=== PATIENT | female | born 2000 | race Caucasian/White ===

== ENCOUNTER 2024-09-21 00:22 | Emergency (ER) | payer OTHER, SELFPAY ==
[2024-09-21 00:25] VITALS: BP 121/62; PULSE 107; RESP 20; TEMP 36.3; O2SAT 97; BMI 41.6
--- NOTE | 2024-09-21 00:58 | ED.SKABFB ---
HPI - Skin/Abscess/Foreign Bdy General Chief complaint: Skin/Abscess/Foreign Body Stated complaint: cyst? Time Seen by Provider: 09/21/24 00:51 Source: patient Mode of arrival: ambulatory Limitations: no limitations History of Present Illness ED Provider: Rachel Verdin NP HPI narrative: Patient is a 23-year-old female who presents emergency department for evaluation of a painful lump to the right upper medial thigh just beneath the groin area. First noticed a few days ago. Increasing in size and pain. Denies any active drainage. Denies any trauma or history. Denies any history of abscesses requiring incision and drainage in the past. No fevers or chills. No urogenital symptoms. Related Data Previous Rx's ?Medication ?Instructions ?Recorded cephalexin 500 mg capsule 500 mg PO QID #27 caps 09/21/24 Allergies Allergy/AdvReac Type Severity Reaction Status Date / Time No Known Allergies Allergy Verified 09/21/24 00:26 Review of Systems Review of Systems: Yes all other systems are reviewed and are negative PMFSH Past Medical History Attestation statement: The following information was validated with the patient. Source: old records reviewed Physical Exam Vital Signs: Vital Signs: Last Vital Signs Temp 97.3 F 09/21/24 00:25 Pulse 107 H 09/21/24 00:25 Resp 20 09/21/24 00:25 BP 121/62 09/21/24 00:25 Pulse Ox 97 09/21/24 00:25 O2 Del Method Room Air 09/21/24 00:25 BMI result Body Mass Index 41.6 Appearance: Alert.?Oriented to person, place and time. No acute distress.?Normal affect.?? CVS: Heart sounds normal. Normal heart rate and rhythm.? Pulses normal.?? Respiratory: No respiratory distress.? Lung sounds clear to auscultation bilaterally??? Skin: Skin warm and dry.? Normal skin color.? Extremities: No lower extremity edema.? No calf ttp. Right proximal medial thigh just inferior to the groin with 0.5 cm fluctuant abscess and surrounding erythema. Neuro: Moves all extremities spontaneously. Sensation intact bilaterally. Ambulates with normal steady gait. Medical Decision Making Medical Decision Making [facility] Narrative: Patient is a 23-year-old female currently 30 weeks with LANDEN 11/29/2024 presenting for evaluation of an abscess to the right medial proximal thigh as per HPI and PE portion of this note. History physical exam consistent with abscess. No systemic toxicity, and patient is well-appearing. There is surrounding cellulitis. Not consistent with necrotizing fasciitis, myositis, DVT, osteomyelitis. She denies any obstetric related concerns, no cramping, Con Beavers/contractions, abnormal vaginal discharge or bleeding, genitourinary symptoms. No fevers or chills. Afebrile. patient is now status post incision and drainage of abscess and tolerated the procedure well. No complications. No labs or imaging indicated at this time. Will discharge home with course of oral antibiotics and symptomatic treatment instructions. Discussed reasons to return to the emergency department, and follow-up with primary care provider. Patient agreeable with plan of care. Differential Diagnosis Differential Diagnoses: The differential diagnosis associated with the presentation includes (Abscess, cellulitis, see additional narrative above) Admission/Observation Consideration of admission/observation: Escalation of care including admission/observation considered Independent Historian Clinical information obtained from an independent historian. History obtained from or confirmed by: Spouse External Record Review External record reviewed: Outpatient record Prescription Management I considered prescription management with: Antibiotic Procedures Abscess I/D Site: lower extremity Side (if applicable): right Local Anesthetic: lidocaine 1% Amount of anesthesia used (mL): 2 Technique: incised with blade Amount of fluid expressed (mL): 3 Irrigation: Yes Packing used?: none Discharge Plan Discharge Clinical Impression: Abscess of skin or subcutaneous tissue Patient Disposition: Home, Self-Care Instructions: Abscess Follow-up (ED) Additional Instructions: Warm moist compresses 2-4 times daily, additionally as discussed, tried to equipment installer a warm/hot shower at least twice daily for 5-10 minutes leading the water run over the area. You may continue to have drainage over the next few days this is entirely expected. You can take Tylenol 500 mg, 2 tablets (1,000mg) every 4-6 hours as needed for pain, but not to exceed 3 doses daily (3,000mg). A prescription for antibiotic has been sent to your pharmacy please complete the entire course not stop taking earlier skip any doses even if you begin to feel better. You may speak with your OBGYN/PCP for further follow-up within the next few days. Return to emergency department any new or worsening symptoms or concerns which includes but is not limited to severe worsening pain, increased swelling/redness, fevers, chills. ? Prescriptions: New cephalexin 500 mg capsule 500 mg PO QID Qty: 27 0RF Referrals: Physician,None [Primary Care Provider] - Print Language: Bulgarian
[2024-09-21] MEDS: Lidocaine HCl 1 % MPF 5 ML VIAL SUBCUT (01:18)
--- NOTE | 2024-09-21 01:20 | PC.NURSE ---
Lidocaine administered by provider leslye Pt a&ox4, no signs of distress Pt reports 8/ pain Plan of care ongoing.
[2024-09-21] MEDS: cephALEXin 500 MG CAPSULE PO (01:58)
[2024-09-21 02:05] VITALS: BP 121/62; PULSE 107; RESP 20; TEMP 36.3; O2SAT 97
== END 2024-09-21 02:09 | disposition home or self-care (01) ==
PROVIDERS: Emergency Provider Emergency Medicine
DX: L02.415 Cutaneous abscess of right lower limb (principal); R22.31 Localized swelling, mass and lump, right upper limb
CPT/HCPCS: 10060; 99284; J2003